=== PATIENT | male | born 1995 | race Asian ===

== ENCOUNTER → 2019-10-23 09:10 | Outpatient (CLI) | payer OTHER, SELFPAY ==
--- NOTE | 2019-10-23 09:15 | DI.ECHO.S_ITS ---
[facility] +---------+ [facility] +---------+ : : [address] : : : : [id number] : : : : Phone: [phone]+ Echocardiogram Report + + :Name: LUARENCE SAEZ Study Date: 10/23/2019 Height: 70 in : :[facility] Weight: 170 lb : : Gender: Male BSA: 1.9 m2 : :: 1995 Age: 24 yrs BP: 124/60 mmHg: :Reason For Study: AFIB : : Performed By: Moe Nichols : :Referring: NIURKA TEIXEIAR : + + Interpretation Summary 1) Normal left ventricular thickness, size, wall motion, and systolic function (EF 60-65%). 2) Normal right ventricular size and function. 3) No significant valvular abnormalities. 4) No prior Echo available for comparison. Procedure: A two-dimensional transthoracic echocardiogram with color flow and Doppler was performed. The study quality was technically good. There is no prior echocardiogram noted for this patient. The patient was in normal sinus rhythm during the exam. Left Ventricle: The left ventricle is normal in size. There is normal left ventricular wall thickness. The ejection fraction is estimated to be 60-65%. There are no focal wall motion abnormalities. Right Ventricle: The right ventricle is normal in size and function. Atria: Both atria are normal in size. The interatrial septum is intact with no evidence for an atrial septal defect. Mitral Valve: The mitral valve is normal in structure and function. There is no mitral regurgitation noted. Aortic Valve: The aortic valve is trileaflet. The aortic valve opens well. There is no aortic valve stenosis. No aortic regurgitation is present. Tricuspid Valve: The tricuspid valve is normal in structure and function. No tricuspid regurgitation. Pulmonary artery pressures cannot be estimated because of the lack of a measurable TR jet velocity. Pulmonic Valve: The pulmonic valve is normal in structure and function. There is trace pulmonic regurgitation. Great Vessels: The aortic root is normal size. The dimensions of the ascending aorta are normal. The pulmonary artery is normal size. The IVC is of normal diameter and collapses greater than 50% with a sniff. This suggests a low right atrial pressure of 3 mm Hg. Pericardium/ Pleura There is no pericardial effusion. There is no pleural effusion. MMode/2D Measurements & Calculations LVIDd: 4.3 cm LVOT diam: 2.2 cm LVIDs: 3.0 cm Ao root diam: 3.2 cm FS: 30.4 % asc Aorta Diam: 3.3 cm EPSS: 0.74 cm Ao Arch Diam (Prox Trans): 2.3 cm IVSd: 0.86 cm LVPWd: 1.0 cm LV muller. diameter/BSA (cm/m^2): 2.2 LV sys. diameter/BSA (cm/m^2): 1.5 LA dimension: 3.2 cm RA long axis: 5.1 cm LA A2 area: 20.0 cm2 RA area: 17.2 cm2 LA A4 area: 17.3 cm2 RA vol: 48.9 ml LA length (vol): 5.7 cm RA : 25.1 ml/m2 LA vol: 52.0 ml IVC diam: 1.6 cm LA vol index: 26.7 ml/m2 TAPSE: 2.2 cm Doppler Measurements & Calculations Ao V2 max: 109.1 cm/sec LVOT Max Greg: 109.2 cm/sec Ao V2 mean: 79.7 cm/sec LV V1 max P.8 mmHg Ao max P.8 mmHg LV V1 VTI: 22.3 cm Ao mean P.7 mmHg MARITO(I,D): 3.8 cm2 Ao V2 VTI: 22.4 cm MARITO(V,D): 3.9 cm2 sev ratio: 0.99 MARITO indexed to BSA (cm^2/m^2): 2.0 MV E max greg: 74.2 cm/sec PA V2 max: 71.6 cm/sec MV A max greg: 40.4 cm/sec PA V2 mean: 56.5 cm/sec MV E/A: 1.8 PA mean P.4 mmHg Med Peak E' Greg: 9.7 cm/sec PA pr(Accel): 29.3 mmHg E/E' med: 7.7 Lat Peak E' Greg: 12.9 cm/sec E/E' lat: 5.7 E/e' average: 6.7 MV dec time: 0.20 sec SV(LVOT): 86.0 ml Reading Physician:11:44 AM
== END ==
PROVIDERS: Referring Provider Physician Assistant; Visit Provider Physician Assistant
DX: I48.91 Unspecified atrial fibrillation (principal)
CPT/HCPCS: 93306